=== PATIENT | female | born 1985 | race Caucasian/White ===

== ENCOUNTER 2023-08-06 05:48 | Day surgery (SDC) | payer OTHER ==
[~2023-08-06 05:48] MED LIST: FOLIC ACID0.4 MG
[2023-08-06] MEDS ORDERED: POVIDONE-IODINE 118 ML BOTT TOP ONE ×2 (07:08→08:15)
[2023-08-06] MEDS ORDERED: CARBOPROST TROMETHAMINE 250 MCG/ML AMPUL IM ONE (07:46)
[2023-08-06] MEDS ORDERED: OXYTOCIN 10 UNITS/ML VIAL ONE (07:57)
[2023-08-06] MEDS ORDERED: OXYTOCIN 10 UNITS/ML VIAL IV ONE (08:15)
== END 2023-08-06 11:00 | disposition home or self-care (01) ==
LOC: CIR.AMB 05:48
PROVIDERS: ATTEND Specialist
DX: O02.1 Missed abortion (principal); O72.2 Delayed and secondary postpartum hemorrhage; Z88.6 Allergy status to analgesic agent; Z88.0 Allergy status to penicillin

== ENCOUNTER 2024-06-16 06:46 | Day surgery (SDC) | payer OTHER ==
[~2024-06-16 06:46] MED LIST changes: +PRENATAL VITAM1 EAC4 PO
[2024-06-16] MEDS ORDERED: OXYTOCIN 10 UNITS/ML VIAL ONE (16:23)
[2024-06-16] MEDS ORDERED: CARBOPROST TROMETHAMINE 250 MCG/ML AMPUL IM ONE (16:27)
[2024-06-16] MEDS ORDERED: ONDANSETRON HCL 2 MG/ML VIAL ONE (17:03)
[2024-06-16] MEDS ORDERED: MORPHINE SULFATE 4 MG/ML VIAL IV ONE (17:15)
[2024-06-16] MEDS ORDERED: PROMETHAZINE HCL 50 MG/ML AMPUL IM ONE (17:23)
[2024-06-16] MEDS ORDERED: PROMETHAZINE HCL 50 MG/ML AMPUL IV ONE ×2 (17:30→17:45)
[2024-06-16] MEDS ORDERED: MEPERIDINE HCL 50 MG/ML AMPUL IM ONE (17:45)
[2024-06-16] MEDS ORDERED: MEPERIDINE HCL/PF 50 MG/ML VIAL IM ONE (17:45)
== END 2024-06-16 19:35 | disposition home or self-care (01) ==
LOC: CIR.AMB 06:46
PROVIDERS: ATTEND Specialist
DX: O03.4 Incomplete spontaneous abortion without complication (principal); Z88.6 Allergy status to analgesic agent; Z88.0 Allergy status to penicillin; F41.9 Anxiety disorder, unspecified; H52.209 Unspecified astigmatism, unspecified eye

== ENCOUNTER → 2024-11-03 | Day surgery (SDC) | payer OTHER ==
[~2024-11-03] MED LIST changes: +OXYTOCIN 10 UNITS/ML VIAL ONE; +POVIDONE-IODINE 118 ML BOTT TOP ONE
== END | disposition home or self-care (01) ==
LOC: CIR.AMB 07:00
PROVIDERS: ATTEND Specialist
DX: O02.1 Missed abortion (principal); Z88.0 Allergy status to penicillin; Z88.6 Allergy status to analgesic agent